=== PATIENT | male | born 1965 | race Caucasian/White ===

== ENCOUNTER 2019-09-29 16:04 | Emergency (ER) | payer OTHER ==
[~2019-09-29] VITALS: Ht 172 cm; Wt 99.0 kg
--- NOTE | 2019-09-29 16:56 | Diagnostic Imaging Report ---
EXAMINATION: Right forearm 2 views. HISTORY: Fall COMPARISON: None available. FINDINGS: Alignment is normal. No fracture is seen. Joint spaces are normal. IMPRESSION: 1. No fracture. Dictated by: Dictated on workstation # [id number]
--- NOTE | 2019-09-29 16:57 | Diagnostic Imaging Report ---
INDICATION: Fall with left shoulder pain. AP, oblique, and transscapular views of the left shoulder are obtained. No fracture or acute bony abnormality is seen. There is no dislocation. There is mild degenerative change of the AC joint. IMPRESSION: Mild degenerative findings of the AC joint. No acute abnormality. Dictated by: Dictated on workstation # [id number]
[2019-09-29] MEDS ORDERED: ACHD5005 PO (17:01)
--- NOTE | 2019-09-29 17:02 | ED Upper Extremity ---
General Chief Complaint: Upper Extremity Stated Complaint: INJ LEFT ARM Nursing Triage Note: FELL OUT WORK HURTING UPPER LEFT ARM. Nursing Sepsis Screen: No Definite Risk Source: patient Exam Limitations: no limitations History of Present Illness Date Seen by Provider: Sep 29, 2019 Time Seen by Provider: 16:30 Initial Comments Fell off a ladder at work less than 10 feet up twisting and rotating the left shoulder. Onset: just prior to arrival Severity: moderate Pain/Injury Location: left shoulder; right forearm Method of Injury: fell Modifying Factors: Worse With Movement Allergies and Home Medications Allergies Coded Allergies: No Known Drug Allergies (Unverified , 09/29/19) Home Medications Hydrocodone Bit/Acetaminophen 1 Tab Tab, 1 EACH PO Q4-6HR PRN for PAIN-MODERATE Prescribed by: KALLI CALLAHAN on 09/29/19 1701 Patient Home Medication List Home Medication List Reviewed: Yes Review of Systems Constitutional: see HPI EENTM: see HPI Respiratory: no symptoms reported Cardiovascular: no symptoms reported Genitourinary: no symptoms reported Musculoskeletal: no symptoms reported Skin: no symptoms reported Psychiatric/Neurological: No Symptoms Reported Past Lbwgdmd-Epojfs-Czcbeh Hx Patient Social History Alcohol Use: Occasionally Uses Recreational Drug Use: No Smoking Status: Never a Smoker Recent Foreign Travel: No Contact w/Someone Who Travel: No Recent Infectious Disease Expo: No Past Medical History Surgeries: No Respiratory: No Cardiac: No Neurological: No Genitourinary: No Gastrointestinal: No Musculoskeletal: No Endocrine: No HEENT: No Cancer: No Psychosocial: No Integumentary: No Physical Exam Vital Signs Vital Signs - First Documented 09/29/19 16:10 Temp 37.0 Pulse 70 Resp 16 B/P (MAP) 152/77 (102) Pulse Ox 98 O2 Delivery Room Air Capillary Refill : Less Than 3 Seconds Height, Weight, BMI Height: '" Weight: lbs. oz. kg; 33.00 BMI Method: General Appearance: WD/WN, no apparent distress HEENT: PERRL/EOMI, normal ENT inspection Respiratory: no respiratory distress, no accessory muscle use Shoulder: normal inspection, limited ROM (the shoulder looked normal), pain Elbow/Forearm: normal inspection, non-tender Hand: normal inspection, non-tender Neurologic/Psychiatric: alert, normal mood/affect, oriented x 3 Skin: normal color, warm/dry Progress/Results/Core Measures Results/Orders My Orders Orders - KALLI CALLAHAN APRN Forearm, Right, 2 Views (09/29/19 16:33) Shoulder, Left, 3 Views (09/29/19 16:33) Vital Signs/I&O 09/29/19 16:10 Temp 37.0 Pulse 70 Resp 16 B/P (MAP) 152/77 (102) Pulse Ox 98 O2 Delivery Room Air Blood Pressure Mean: 102 Departure Impression Primary Impression: Rotator cuff injury Qualified Codes: S46.002A - Unspecified injury of muscle(s) and tendon(s) of the rotator cuff of left shoulder, initial encounter Disposition: HOME, SELF-CARE Condition: Stable Departure-Patient Inst. Decision time for Depature: 17:00 Referrals: NO,LOCAL PHYSICIAN (PCP) Primary Care Physician Patient Instructions: Rotator Cuff Injury (DC) Add. Discharge Instructions: 1. Ice pack to the rotator cuff 2. Anti-inflammatories like ibuprofen or naproxen. Stronger pain medication that we have prescribed as needed. Return to ER for any worsening symptoms or other concerns. Call your doctor tomorrow to make an appointment to be seen. If this fails to heal on its own MRI may be warranted. All discharge instructions reviewed with patient and/or family. Voiced understanding. Scripts Hydrocodone Bit/Acetaminophen (Hydrocodone/Acetaminophen 5/325mg Tablet) 1 Tab Tab 1 EACH PO Q4-6HR PRN for PAIN-MODERATE MDD 10 for 3 Days, #10 TAB Prov: KALLI CALLAHAN APRN 09/29/19 Work/School Note: Work Release Form Date Seen in the Emergency Department: Sep 29, 2019 Return to Work: Sep 30, 2019 Other Restrictions Listed Below: No use of left arm until released. KALLI CALLAHAN APRN Sep 29, 2019 17:02
[2019-09-29] MEDS ORDERED: TRAM-42 PO (17:13)
[2019-09-29] MEDS ORDERED: IBUP-1780 PO (17:13)
[2019-09-29 17:14] VITALS: BP 152/77
== END 2019-09-29 17:14 | disposition home or self-care (01) ==
LOC: EDUNIT# 16:04 → ER 16:05
DX: S46.002A Unspecified injury of muscle(s) and tendon(s) of the rotator cuff of left shoulder, initial encounter (principal); W11.XXXA Fall on and from ladder, initial encounter; Y92.59 Other trade areas as the place of occurrence of the external cause; Y99.0 Civilian activity done for income or pay
CPT/HCPCS: 73030; 73090